=== PATIENT | female | born 1975 | race Two or more races ===

== ENCOUNTER → 2024-04-05 | Outpatient (CLI) | payer MEDICAID, SELFPAY ==
--- NOTE | 2024-04-05 09:30 | XR_ITS ---
Examination: CT chest with intravenous contrast 2-D sagittal and coronal reconstructions Exam date and time: April 05, 2024 0930 hours INDICATIONS: Left breast pain and palpable masses in the left breast note is beginning 18 months ago CTDI:vol (mGy) 11.5 DLP: (mGycm) 347 Technique: Multiple axial sections of the thorax have been obtained. Sections have been obtained, 3 mm slice thickness. Mediastinal and lung density settings have been obtained. Intravenous contrast administered, 60 cc Isovue-370. 2-D sagittal, coronal images obtained. Low dose protocols were performed. One or more of the following dose reduction techniques were used; automated exposure control, adjustment of the mA and/or KV according to patient size, use of iterative reconstruction technique. Findings: No thoracic aortic aneurysmal dilatation No pulmonary artery emboli No paratracheal tracheobronchial or bronchopulmonary adenopathy No pneumonia or pulmonary edema or pleural disease No axillary lymphadenopathy No visualized liver or splenic lesion Gallstones are not identified No pancreatic mass IMPRESSION: No mediastinal lymphadenopathy No axillary lymphadenopathy No pneumonia, pulmonary edema or pleural disease Given the patient's history of abscess pain, consider breast sonography follow-up
== END | disposition home or self-care (01) ==
PROVIDERS: Referring Provider Nurse Practitioner Family; Visit Provider Nurse Practitioner Family
DX: R59.9 Enlarged lymph nodes, unspecified (principal)
CPT/HCPCS: 71260; A4649; Q9967